=== PATIENT | female | born 1975 | race Caucasian/White ===

== ENCOUNTER 2017-04-29 01:43 | Emergency (ER) | payer OTHER ==
[~2017-04-29] VITALS: Ht 165.1 cm; Wt 78.7 kg
[2017-04-29] MEDS ORDERED: NORCO 5/3251 TABLET PO (03:19)
[2017-04-29] MEDS ORDERED: FLEXERIL10 MG PO (03:19)
[2017-04-29 03:34] VITALS: BP 148/102
== END 2017-04-29 03:35 | disposition home or self-care (01) ==
LOC: EME 01:43
DX: S39.012A Strain of muscle, fascia and tendon of lower back, initial encounter (principal); V89.2XXA Person injured in unspecified motor-vehicle accident, traffic, initial encounter; Y92.411 Interstate highway as the place of occurrence of the external cause; J45.909 Unspecified asthma, uncomplicated; Z87.891 Personal history of nicotine dependence
CPT/HCPCS: 72100; 99281; 99282